=== PATIENT | female | born 1980 | race Caucasian/White ===

== ENCOUNTER 2018-03-15 22:56 | Emergency (ER) | payer BC ==
[2018-03-15 23:22] VITALS: BP 111/76; PULSE 72; TEMP 98; BMI 19.7
[2018-03-16 00:15] LABS: COCAINE, UR NEGATIVE ng/ml (CUTOFF=300); METHADONE, UR NEGATIVE ng/ml (CUTOFF=300); OPIATES, URI NEGATIVE ng/ml (CUTOFF=300); PHENCYCLIDINE,URINE NEGATIVE ng/ml (CUTOFF=25); URINE AMPHETAMINES NEGATIVE ng/ml (CUTOFF=500); URINE BARBITURATES NEGATIVE ng/ml (CUTOFF=200); URINE BENZODIAZEPINES NEGATIVE ng/ml (CUTOFF=200)
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
== END 2018-03-16 00:42 | disposition home or self-care (01) ==
LOC: JER 22:56
DX: R55 Syncope and collapse (principal)
CPT/HCPCS: 80307; 99282-25